=== PATIENT | female | born 1985 | race Caucasian/White ===

== ENCOUNTER 2019-03-24 19:54 | Emergency (ER) | payer OTHER ==
[2019-03-24] MEDS ORDERED: Ondansetron ODT 4 MG TAB ONE (20:15)
[2019-03-24] MEDS ORDERED: Acetaminophen 500 MG TAB ONE (20:15)
== END 2019-03-24 21:41 | disposition home or self-care (01) ==
LOC: ERS 19:54
DX: J11.1 Influenza due to unidentified influenza virus with other respiratory manifestations (principal); Z79.899 Other long term (current) drug therapy
CPT/HCPCS: 99283; Q0162